=== PATIENT | male | born 1975 | race Caucasian/White ===

== ENCOUNTER 2018-01-13 08:13 | Emergency (ER) | payer SELFPAY ==
[~2018-01-13] VITALS: Ht 170.2 cm; Wt 72.6 kg
[2018-01-13 08:21] VITALS: Ht 170.2 cm; Wt 72.6 kg
[2018-01-13 09:22] LABS: ALBUMIN 4.5 g/dL (3.4-5.0); ALKALINE PHOSPHATASE 102 U/L (46-116); ALT/SGPT 40 U/L (16-63); AST/SGOT 32 U/L (15-37); BILIRUBIN TOTAL 1.1 mg/dL (0.20-1.00); CALCIUM 9.5 mg/dL (8.5-10.1); CARBON DIOXIDE 19.3 mmol/L (21-32); CHLORIDE SERUM 100 mmol/L (98-107); CHOLESTEROL 164 mg/dL (<200); CHOLESTEROL/HDL RATIO 6.3; CREATININE SERUM 1.1 mg/dL (0.7-1.3); GFR1 > 60 mL/min; GLUCOSE SERUM 149 mg/dL (74-106); HDL CHOLESTEROL 26 mg/dL (40-60); LIPASE 64 IU/L (73-393); POTASSIUM SERUM 3.4 mmol/L (3.5-5.1); SODIUM SERUM 136 mmol/L (136-145); TOTAL PROTEIN, SERUM 8.6 g/dL (6.4-8.2); TRIGLYCERIDES 111 mg/dL (<150)
[2018-01-13 09:34] LABS: PLATELET COUNT 385 x10^3mcL (130-400)
[2018-01-13 09:36] LABS: T3 TOTAL 1.19 ng/mL
[2018-01-13 09:38] LABS: RED CELL DISTRIBUTION WIDTH 14.7 % (11.5-14.5)
[2018-01-13 09:47] LABS: FREE T4 1.25 ng/dL (0.76-1.46); T4(THYROXINE) 8.8 ug/dL (4.7-13.3)
[2018-01-13 10:22] LABS: BAND NEUTROPHIL 3 % (0-10); MONOCYTE 5 % (0-7); SEGMENTED NEUTROPHILS 81 % (37-75); rbc morphology (normal/abnorm) NORMAL (NORMAL)
[2018-01-13 10:43] LABS: UA SPECIFIC GRAVITY >=1.030 (1.005-1.035); microscopic required? YES; urine erythrocyte TRACE (NEGATIVE)
[2018-01-13 10:57] LABS: AMPHETAMINE QUAL UR POSITIVE (NEG <=1000)
[2018-01-13 12:54] LABS: MAGNESIUM 2.1 mg/dL (1.8-2.4); PHOSPHOROUS 3.2 mg/dL (2.5-4.9)
[2018-01-13 17:49] VITALS: BP 144/91
== END 2018-01-13 17:49 | disposition left against medical advice (07) ==
LOC: EDBD 08:13 → ED 08:13
PROVIDERS: Family Medicine; Specialist
DX: R07.89 Other chest pain (principal); R41.82 Altered mental status, unspecified; D72.829 Elevated white blood cell count, unspecified; F19.10 Other psychoactive substance abuse, uncomplicated
CPT/HCPCS: 83880; 84439; G0480; J0696; J2060; J7030; Q0092